=== PATIENT | female | born 1940 | race Caucasian/White ===

== ENCOUNTER → 2017-08-05 | Outpatient (CLI) | payer MEDICARE, BC ==
[~2017-08-05] MED LIST: ALE70 PO; ALL300 PO; AMO500 PO; ASCO-182 PO; ATE50 PO; ATOR20TA65 PO; CELE-1 PO; CITRUCEL PO; DEXT10SY2 PO; DILSR120 PO; DOCU-416 PO; ENO40I SQ; GABA-547 PO; HYDR-4240 PO; LOR10 PO; LOR7.5/325 PO; LORA-787 PO; LOSA-165 PO; LOSA100T67 PO; MELO-150 PO; MET500 PO; MOM PO; MON10 PO; MULT-885 PO; OXY10 PO; OXYB10TA16 PO; PHEN-530 PO; SIMV-49 PO; WAR5 PO; [UNRECOGNIZED DRUG - CODE] PO
--- NOTE | 2017-08-05 14:20 | RADIOLOGY IMAGING REPORT ---
FACILITY: [facility] PATIENT NAME: KWAKU OWENS : [id number] MR: [id number] V: [id number] EXAM DATE: [id number] ORDERING PHYSICIAN: DIANE GAMEZ TECHNOLOGIST: Marla Tate PROCEDURE:BILATERAL DIGITAL SCREENING MAMMOGRAM WITH CAD ASSISTED INTERPRETATION & 3D TOMOSYNTHESIS COMPARISON:Prior mammograms 08/06/16, 07/31/15 INDICATIONS:SCREENING/FAMILY HISTORY OF BREAST CANCER IN A SISTER. PREVIOUS RIGHT BREAST BENIGN SURGICAL EXCISIONAL BIOPSY. TISSUE DENSITY: Heterogeneously dense, which may obscure small masses. FINDINGS: Views obtained bilateral 2D CC & MLO, and corresponding 3D tomography. There is no mammographic finding suspicious for malignancy, and no significant change compared to prior mammograms. DIAGNOSTIC CATEGORY 1--NEGATIVE. RECOMMENDATIONS: ROUTINE MAMMOGRAM AND CLINICAL EVALUATION. IMPRESSION: BIRADS 1: Negative Annual bilateral screening mammogram. Dictated by: Adelaida Estevez M.D. on 08/05/2017 at 9:29 Transcribed by: RAMÓN on 08/05/2017 at 13:32 Approved by: Adelaida Estevez M.D. on 08/05/2017 at 14:20 [facility]
== END ==
LOC: MAMO 02:08
PROVIDERS: ATTEND Family Medicine
DX: Z12.31 Encounter for screening mammogram for malignant neoplasm of breast (principal)
CPT/HCPCS: 77063; 77067

== ENCOUNTER 2017-09-10 16:23 | Emergency (ER) | payer MEDICARE, BC ==
[2017-09-10] MEDS ORDERED: BACITRACIN OINT 0.9 GM PKT TP ONE (16:40)
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
[2017-09-10 17:12] LABS: PLATELET COUNT, AUTOMATED 167 K/uL (150-450)
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
[2017-09-10 17:56] VITALS: BP 133/66
== END 2017-09-10 18:01 | disposition home or self-care (01) ==
LOC: ER 16:30
DX: S60.512A Abrasion of left hand, initial encounter (principal); R94.31 Abnormal electrocardiogram [ECG] [EKG]; V49.40XA Driver injured in collision with unspecified motor vehicles in traffic accident, initial encounter
CPT/HCPCS: 36416; 70450; 71046; 73130; 82948; 84484; 85025; 93005; 99284; A9270; 82040; 82247; 82310; 82374; 82435; 82565; 82947; 84075; 84132; 84155; 84295; 84450; 84460; 84520; C9399

== ENCOUNTER → 2018-03-02 | Outpatient (CLI) | payer OTHER, MEDICARE, BC ==
[~2018-03-02] MED LIST changes: -LOSA100T67 PO; +LOSA100T69 PO
[2018-03-02 08:53] LABS: PLATELET COUNT, AUTOMATED 195 K/uL (150-450)
== END ==
LOC: LAB 08:31
PROVIDERS: ATTEND Internal Medicine Nephrology
DX: R80.1 Persistent proteinuria, unspecified (principal); M32.14 Glomerular disease in systemic lupus erythematosus; N18.2 Chronic kidney disease, stage 2 (mild)
CPT/HCPCS: 36415; 82040; 82310; 82374; 82435; 82565; 82570; 82947; 84100; 84132; 84156; 84295; 84520; 85025

== ENCOUNTER → 2018-03-22 | Outpatient (REF) | payer MEDICARE, BC | LOC: ZZSENDIN 18:20 | PROVIDERS: ATTEND Urology | DX: N39.0 Urinary tract infection, site not specified (principal); B96.89 Other specified bacterial agents as the cause of diseases classified elsewhere | CPT/HCPCS: 81001; 87077; 87088 ==

== ENCOUNTER → 2018-04-12 | Outpatient (REF) | payer MEDICARE, BC | LOC: ZZSENDIN 17:10 → EDSTATUS 17:11 | PROVIDERS: ATTEND Urology | DX: N39.0 Urinary tract infection, site not specified (principal); B96.20 Unspecified Escherichia coli [E. coli] as the cause of diseases classified elsewhere | CPT/HCPCS: 87077; 87088; 87186 ==

== ENCOUNTER → 2018-05-05 | Outpatient (CLI) | payer MEDICARE, BC ==
[~2018-05-05] MED LIST changes: -LOSA100T69 PO; +LOSA100T75 PO
--- NOTE | 2018-05-05 14:51 | RADIOLOGY IMAGING REPORT ---
FACILITY: [facility] [place] PATIENT NAME: Demetria Berman : 1940 MR: [id number] V: [id number] EXAM DATE: ORDERING PHYSICIAN: SPENCER RANGEL TECHNOLOGIST: Location: [facility] Patient: Demetria Berman : 1940 Visit/Account:[id number] Date of Sevice: 05/05/2018 EXAMINATION: Ultrasound renal HISTORY: Incontinence, recurrent urinary tract infections. COMPARISON: CT abdomen and pelvis from 12/18/2013. FINDINGS: Kidneys: Right kidney: 10.1 cm, mild cortical thinning and normal echogenicity. 4.6 cm simple cyst at the in ferior pole measures smaller than 5.[address] The cyst is anechoic. Left kidney: 8.9 cm, mild cortical thinning and normal echogenicity. Uniform and symmetric blood flow in each kidney by Doppler ultrasound. Resistive index is borderline elevated on the right at 0.81 and is normal on the left at 0.57. Hydronephrosis: None. Bladder: Partly distended with mildly irregular bladder wall. No focal abnormality. Normal bilatera l ureteral jets visualized. Post void residual of 91 mL. Abdominal aorta and IVC: Patent by Doppler ultrasound. IMPRESSION: 1. Mild cortical thinning of the kidneys is likely age-related. 2. 4.6 cm simple right renal cyst. 3. Mildly irregular bladder wall could be due to underdistention or chronic inflammation. 4. Post void residual of 91 mL. Report Dictated By: Danielle Crowley MD at 05/05/2018 2:43 PM Report E-Signed By: Danielle Crowley MD at 05/05/2018 2:47 PM WSN:[email or web address]
== END ==
LOC: US 01:24
PROVIDERS: ATTEND Urology
DX: N39.0 Urinary tract infection, site not specified (principal); N28.1 Cyst of kidney, acquired
CPT/HCPCS: 76705

== ENCOUNTER → 2018-07-01 | Outpatient (REF) | payer MEDICARE, BC | LOC: ZZSENDIN 14:47 | PROVIDERS: ATTEND Urology | DX: N39.0 Urinary tract infection, site not specified (principal) | CPT/HCPCS: 87088 ==

== ENCOUNTER → 2018-08-11 | Outpatient (CLI) | payer MEDICARE, BC ==
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
== END ==
LOC: MAMO 01:51
PROVIDERS: ATTEND Family Medicine
DX: Z12.31 Encounter for screening mammogram for malignant neoplasm of breast (principal)
CPT/HCPCS: 77063; 77067

== ENCOUNTER → 2018-08-23 | Outpatient (REF) | payer MEDICARE, BC | LOC: ZZSENDIN 16:32 | PROVIDERS: ATTEND Urology | DX: N39.0 Urinary tract infection, site not specified (principal) | CPT/HCPCS: 87088 ==

== ENCOUNTER → 2018-10-18 | Outpatient (REF) | payer MEDICARE, BC | LOC: ZZSENDIN 14:09 | PROVIDERS: ATTEND Urology | DX: N39.0 Urinary tract infection, site not specified (principal) | CPT/HCPCS: 81001; 87088 ==